=== PATIENT | female | born 1985 ===

== ENCOUNTER 2018-08-09 08:17 | Emergency (ER) | payer SELFPAY ==
[2018-08-09 08:34] VITALS: BP 101/67; PULSE 73; RESP 18; TEMP 98.1; O2SAT 94
--- NOTE | 2018-08-09 09:00 | C.PDOC ---
History Of Present Illness patient left without being seen Chief Complaint (Nursing): Abdominal Pain Past Medical History Vital Signs: Last Vital Signs Temp 98.1 F 08/09/18 08:27 Pulse 73 08/09/18 08:27 Resp 18 08/09/18 08:27 BP 101/67 08/09/18 08:27 Pulse Ox 94 L 08/09/18 08:27 - Medical History PMH: HTN Family History: States: No Known Family Hx - Social History Hx Alcohol Use: No Hx Substance Use: No - Immunization History Hx Tetanus Toxoid Vaccination: No Hx Influenza Vaccination: No Hx Pneumococcal Vaccination: No ED Course And Treatment O2 Sat by Pulse Oximetry: 94 Disposition - Disposition Disposition: LEFT W/O BEING SEEN - ER ONLY Disposition Time: 08:59 Condition: UNKNOWN Forms: [facility] (Lithuanian) - Clinical Impression Clinical Impression: Abdominal pain
== END 2018-08-09 08:49 | disposition left against medical advice (07) ==
LOC: C.ER 08:17
DX: Z02.89 Encounter for other administrative examinations (principal); R10.9 Unspecified abdominal pain